=== PATIENT | female | born 2000 | race African-American/Black ===

== ENCOUNTER 2020-03-13 15:42 | Emergency (ER) | payer OTHER, SELFPAY ==
[2020-03-13 15:45] VITALS: BP 133/77; PULSE 130; RESP 16; TEMP 37.2; O2SAT 96
--- NOTE | 2020-03-13 16:11 | ED.URI ---
HPI - URI/Sore Throat General Chief Complaint: Upper Respiratory Infection Stated Complaint: swollen tonsils/ lymph nodes/ fluid in head Time Seen by Provider: 03/13/20 16:05 History of Present Illness HPI Narrative: 19-year-old female patient who is here with chief complaints of sore throat for the last week. She states that she has noticed some white spots and enlarged tonsils. She was apparently seen in an urgent care center in [place] and was negative for strep as well as COVID. She denies any cough. She states that the pain has been persistent. She is unsure of any fever but has experienced some chills. She denies any contact with anyone with similar symptoms. The patient denies any joint pain or abdominal pain. She denies any shortness of breath. Patient has been taking some pain medication without much relief. Related Data Allergies Allergy/AdvReac Type Severity Reaction Status Date / Time No Known Allergies Allergy Verified 03/13/20 16:40 Review of Systems Review of Systems: All systems reviewed & are unremarkable except as noted in HPI and below PMFSH Past Medical History Medical History (Updated 03/13/20 @ 16:51 by Toshia Lozoya MD) No pertinent past medical history Surgical History Surgical History (Updated 03/13/20 @ 16:15 by Toshia Lozoya MD) No significant past surgical history Social History Social History (Updated 03/13/20 @ 16:16 by Toshia Lozoya MD) Smoking status: Never smoker Exam Const: General: alert and ill appearing Orientation/consciousness: patient oriented x3 Other: mils distress. HENMT: Head: normal to inspection Other: Has moderate erythema of the posterior pharyngeal wall with swollen tonsils with significant exudate bilaterally. Uvula is midline. No drooling is noted at this time. Patient does have mild anterior cervical adenopathy Resp: Effort & Inspection: normal respiratory effort Auscultation: clear to auscultation bilaterally Cardio: Rate: regular rate Rhythm: regular rhythm Heart sounds: no murmurs GI: GI Palp: Yes Soft to palpation, No Tenderness to palpation present (GI), No Guarding due to palpation present (GI) and No Rigid due to palpation Auscultation: normal bowel sounds Back/Spine/Pelvis: Back: no CVA tenderness Skin: General skin exam: normal color, no jaundice and no pallor Rashes: no rashes Wounds: wound noted Neuro: General: patient oriented x3 Speech: normal speech Gait exam (Neuro): Normal gait present Extrem: General: normal to inspection Psych: Mental Status: mental status grossly normal Course Course Emergency Course: The patient has a positive mono screen test. Her strep screen remains negative. Patient is aware of the diagnosis and the treatment plan. I will go ahead and start the patient on Zithromax for any infection. She is currently on prednisone and has been advised to continue until it is done. She is also advised to use liquid Tylenol and ibuprofen together as below and written instructions to reduce the swelling. The patient does have a complaint about not being able to eat and have some nausea and vomiting and I will put her on some Zofran. The patient is advised to stay home and hydrated and follow up with a primary care physician. Discharge Plan Discharge Clinical Impression: Mononucleosis, Pharyngitis Patient Disposition: Home, Self-Care Condition: Stable Instructions: Mononucleosis (ED), Pharyngitis (ED) Additional Instructions: Stay well hydrated Rest at home Continue prednisone Antibiotic as prescribed Take Tylenol 500 mg and ibuprofen 400 mg every 8 hours as needed for pain Follow-up with your primary care physician in 1 week or sooner as needed. Prescriptions: New ondansetron HCl [Zofran] 4 mg tablet 4 mg PO Q8H PRN (Reason: nausea and vomiting) Qty: 14 RF: 0 azithromycin [Zithromax] 250 mg tablet 250 mg PO DAILY 5 Days Qty: 5 RF: 0 Follow-up/Referrals:
[2020-03-13 16:38] LABS: Monoscreen Positive (Negative); Negative Monotest Control Negative (Negative); Positive Monotest Control Positive (Positive)
== END 2020-03-13 17:09 | disposition home or self-care (01) ==
PROVIDERS: Emergency Provider Emergency Medicine
DX: B27.90 Infectious mononucleosis, unspecified without complication (principal); J02.9 Acute pharyngitis, unspecified
CPT/HCPCS: 36415; 86308; 87081; 87880; 99283

== ENCOUNTER 2020-11-25 16:13 | Outpatient (CLI) | payer OTHER, BC, SELFPAY | END 2020-11-25 16:14 | disposition home or self-care (01) | LOC: ANHCOVIDVC 16:13 | DX: Z23 Encounter for immunization (principal) | CPT/HCPCS: 0001A; 91300 ==

== ENCOUNTER 2020-12-16 16:16 | Outpatient (CLI) | payer OTHER, BC, SELFPAY | END 2020-12-16 16:17 | disposition home or self-care (01) | LOC: ANHCOVIDVC 16:16 | DX: Z23 Encounter for immunization (principal) | CPT/HCPCS: 0002A; 91300 ==